=== PATIENT | female | born 1975 | race Caucasian/White ===

== ENCOUNTER 2017-11-09 06:39 | Emergency (ER) | payer MEDICAID ==
[2017-11-09] MEDS: NICARDipine HCL 30 MG CAPSULE PO (07:17)
== END 2017-11-09 09:03 | disposition home or self-care (01) ==
LOC: E/R 06:39
DX: I10 Essential (primary) hypertension (principal); R04.0 Epistaxis; R51 Headache; R40.2252 Coma scale, best verbal response, oriented, at arrival to emergency department; R40.2142 Coma scale, eyes open, spontaneous, at arrival to emergency department; R40.2362 Coma scale, best motor response, obeys commands, at arrival to emergency department
CPT/HCPCS: 71045; 93005; 99284-25

== ENCOUNTER 2017-11-10 00:43 | Emergency (ER) | payer MEDICAID ==
[2017-11-10] MEDS: SOD CHLORIDE 0.9% 500 ML IV (03:25)
[2017-11-10] MEDS: PHENYLephrine 0.5% 15 ML NAS SPRAY NASAL (03:42)
[2017-11-10 03:48] LABS: ADD MAN DIFF? NO
[2017-11-10 04:22] LABS: WHITE BLOOD COUNT 12.8 10^3/ul (4.8-10.8)
[2017-11-10 04:22] LABS: ALANINE AMINOTRANSFERASE 34 IU/L (13-69); ALBUMIN 4.5 g/dl (3.3-4.9); ALBUMIN/GLOBULIN RATIO 1.28; ALKALINE PHOSPHATASE 94 IU/L (42-121); ANION GAP 17 (8-16); ASPARTATE AMINO TRANSFERASE 25 IU/L (15-46); BASOPHIL # 0.1 10^3/ul (0.0-0.1); BASOPHILS % 0.4 % (0.0-2.0); BLOOD UREA NITROGEN 15 mg/dl (7-20); CALCIUM 9.5 mg/dl (8.4-10.2); CARBON DIOXIDE 27 mmol/L (21-31); CHLORIDE 101 mmol/L (97-110); CREATININE 0.86 mg/dl (0.44-1.00); EOSINOPHILS # 0.3 10^3/ul (0.0-0.5); GLUCOSE 115 mg/dl (70-220); HEMATOCRIT 35.4 % (37.0-47.0); HEMOGLOBIN 11.4 g/dl (12.0-16.0); LIPASE 286 U/L (23-300); LYMPHOCYTES # 3.1 10^3/ul (0.8-2.9); LYMPHOCYTES % 24.4 % (15.0-51.0); MEAN CORPUSCULAR HEMOGLOBIN 27.3 pg (29.0-33.0); MEAN CORPUSCULAR HGB CONC 32.2 g/dl (32.0-37.0); MEAN CORPUSCULAR VOLUME 84.7 fl (82.0-101.0); MEAN PLATELET VOLUME 11.3 fl (7.4-10.4); MONOCYTE # 0.8 10^3/ul (0.3-0.9); MONOCYTES % 5.9 % (0.0-11.0); NEUTROPHIL # 8.6 10^3/ul (1.6-7.5); NEUTROPHILS % 66.8 % (39.0-77.0); PLATELET COUNT 381 10^3/UL (140-415); POTASSIUM 3.4 mmol/L (3.5-5.1); RED BLOOD COUNT 4.18 10^6/ul (4.20-5.40); SODIUM 142 mmol/L (135-144)
[2017-11-10 04:40] LABS: TROPONIN-I < 0.012 ng/ml (0.00-0.12)
== END 2017-11-10 04:49 | disposition home or self-care (01) ==
LOC: E/R 00:43
DX: I10 Essential (primary) hypertension (principal)
CPT/HCPCS: 36415; 80053; 83690; 84484; 85025; 93005; 99284-25